=== PATIENT | male | born 1950 | race Caucasian/White ===

== ENCOUNTER → 2020-08-17 | Outpatient (CLI) | payer MEDICARE ==
[~2020-08-17] MED LIST: ASPI81TA45 PO; MULT-658 PO; SIMV40TA20 PO
== END | disposition home or self-care (01) ==
LOC: STAR 07:52
PROVIDERS: ATTEND Student in an Organized Health Care Education/Training Program
DX: Z01.818 Encounter for other preprocedural examination (principal); N21.0 Calculus in bladder; Z20.822 Contact with and (suspected) exposure to COVID-19
CPT/HCPCS: 36415; 84153; 93005; U0003; G0103

== ENCOUNTER 2020-08-23 05:59 | Day surgery (SDC) | payer MEDICARE ==
[2020-08-17 08:14] VITALS: BP 143/95
[~2020-08-23] VITALS: Ht 175.3 cm; Wt 93.5 kg
[2020-08-23 06:43] VITALS: BP 143/95
[2020-08-23] MEDS ORDERED: CHLORHEXIDINE 15 ML UDC PO ONE (07:00)
[2020-08-23] MEDS ORDERED: LACTATED RINGERS 1,000 ML IV SCH (07:00)
[2020-08-23] MEDS ORDERED: PROPOFOL 50 ML ONE ×2 (07:45→07:53)
[2020-08-23] MEDS ORDERED: KETOROLAC 30 MG/1 ML ONE (07:47)
[2020-08-23] MEDS ORDERED: DEXAMETHASONE 4 MG/ML, 1ML ONE (07:47)
[2020-08-23] MEDS ORDERED: ONDANSETRON 2MG/ML, 2ML ONE (07:47)
[2020-08-23] MEDS ORDERED: CEFAZOLIN 1,000 MG ONE (07:47)
[2020-08-23] MEDS ORDERED: FENTANYL PF 100 MCG/2ML ONE (08:08)
[2020-08-23] MEDS ORDERED: PROMETHAZINE 25 MG/ML, 1ML IVPush PRN (08:30)
[2020-08-23] MEDS ORDERED: ACETAMINOPHEN 325 MG TABLET PO PRN (08:30)
[2020-08-23] MEDS ORDERED: ONDANSETRON 2MG/ML, 2ML IVPush PRN (08:30)
[2020-08-23] MEDS ORDERED: LABETALOL 5MG/ML, 20ML IV PRN (08:30)
[2020-08-23] MEDS ORDERED: HYDROmorphone 1 MG/ML, 1ML INJ IVPush PRN (08:30)
[2020-08-23] MEDS ORDERED: LORazepam 2 MG/ML, 1ML IVPush PRN (08:30)
[2020-08-23] MEDS ORDERED: OXYcodone 5 MG/5 ML ORAL.SOL UDC PO PRN (08:30)
[2020-08-23] MEDS ORDERED: FENTANYL PF 100 MCG/2ML IV PRN (08:30)
[2020-08-23] MEDS ORDERED: EPHEDRINE 50 MG/ML, 1ML IVPush PRN (08:30)
[2020-08-23] MEDS ORDERED: METHOCARBAMOL 1,000 MG in DEXTROSE 5% 100 ML IV PRN (08:30)
[2020-08-23] MEDS ORDERED: hydrALAzine 20 MG/ML, 1ML IV PRN (08:30)
[2020-08-23] MEDS ORDERED: MEPERIDINE/PF 25MG/0.5ML IVPush PRN (08:30)
== END 2020-08-23 11:10 | disposition home or self-care (01) ==
LOC: OUT 05:59
PROVIDERS: ATTEND Student in an Organized Health Care Education/Training Program
DX: N21.0 Calculus in bladder (principal); N40.1 Benign prostatic hyperplasia with lower urinary tract symptoms; R35.0 Frequency of micturition; R39.15 Urgency of urination; K80.20 Calculus of gallbladder without cholecystitis without obstruction; E78.5 Hyperlipidemia, unspecified; Z79.82 Long term (current) use of aspirin; Z79.899 Other long term (current) drug therapy
CPT/HCPCS: 52317; C2630; J0690; J1100; J1885; J2405; J2704; J3010; J7120

== ENCOUNTER → 2020-10-25 | Outpatient (CLI) | payer MEDICARE | END | disposition home or self-care (01) | LOC: STAR 11:33 | PROVIDERS: ATTEND Student in an Organized Health Care Education/Training Program | DX: Z01.818 Encounter for other preprocedural examination (principal); N40.1 Benign prostatic hyperplasia with lower urinary tract symptoms | CPT/HCPCS: 93005 ==